=== PATIENT | female | born 1975 | race African-American/Black ===

== ENCOUNTER 2022-04-17 00:41 | Emergency (ER) | payer OTHER, MEDICAID ==
[~2022-04-17] VITALS: Ht 170.2 cm; Wt 85.0 kg
[2022-04-17 00:51] VITALS: BP 133/78
[2022-04-17] MEDS ORDERED: HYDROCODONE/ACETAMINOPHEN 5/325MG TABLET PO ONE (05:45)
[2022-04-17] MEDS ORDERED: HYDR-4001 MT (06:19)
== END 2022-04-17 06:27 | disposition home or self-care (01) ==
LOC: ER 00:41
DX: Z85.3 Personal history of malignant neoplasm of breast (principal); Z91.041 Radiographic dye allergy status
CPT/HCPCS: 99283

== ENCOUNTER 2022-04-17 09:07 | Emergency (ER) | payer OTHER, MEDICAID ==
[~2022-04-17] VITALS: Ht 170.2 cm; Wt 75.0 kg
[~2022-04-17 09:07] MED LIST: HYDR-4001 MT
[2022-04-17 09:11] VITALS: BP 133/78
== END 2022-04-17 11:20 | disposition home or self-care (01) ==
LOC: ER 09:07
DX: Z13.9 Encounter for screening, unspecified (principal); Z85.3 Personal history of malignant neoplasm of breast; Z59.00 Homelessness unspecified
CPT/HCPCS: 99282